=== PATIENT | female | born 1985 ===

== ENCOUNTER 2021-03-16 15:20 | Outpatient (CLI) | payer OTHER, SELFPAY | END 2021-03-16 15:21 | disposition home or self-care (01) | LOC: ANHBWCLAB 15:22 | PROVIDERS: Visit Provider Obstetrics & Gynecology | DX: O03.4 Incomplete spontaneous abortion without complication (principal); Z3A.00 Weeks of gestation of pregnancy not specified | CPT/HCPCS: 36415; 84702 ==